=== PATIENT | male | born 1990 | race Caucasian/White ===

== ENCOUNTER 2021-04-19 12:55 | Emergency (ER) | payer OTHER ==
[2021-04-19] MEDS ORDERED: Acetaminophen 500 MG TAB ONE (13:22)
== END 2021-04-19 13:36 | disposition home or self-care (01) ==
LOC: MADERS 12:55
DX: S00.03XA Contusion of scalp, initial encounter (principal); W22.8XXA Striking against or struck by other objects, initial encounter
CPT/HCPCS: 99406